=== PATIENT | male | born 1975 | race Caucasian/White ===

== ENCOUNTER 2020-04-04 13:21 | Emergency (ER) | payer MEDICAID ==
[~2020-04-04] VITALS: Ht 157.5 cm; Wt 85.8 kg
[2020-04-04 13:24] VITALS: BP 135/82
[2020-04-04] MEDS ORDERED: DIPH,PERTUSS(ACELL),TET VAC/PF 0.5 ML IM-VACC ONE ×2 (14:00→14:32)
[2020-04-04] MEDS ORDERED: NEOSPORIN OINT. PKT 1 PACKET ONE (14:13)
[2020-04-04] MEDS ORDERED: NEOSPORIN OINT. PKT 1 PACKET TP PRN (14:30)
== END 2020-04-04 14:39 | disposition home or self-care (01) ==
LOC: ED 14:33
DX: S61.210D Laceration without foreign body of right index finger without damage to nail, subsequent encounter (principal); F17.210 Nicotine dependence, cigarettes, uncomplicated; X58.XXXD Exposure to other specified factors, subsequent encounter
CPT/HCPCS: 90471; 90715; 99283